=== PATIENT | female | born 1955 | race Caucasian/White ===

== ENCOUNTER 2024-12-05 12:39 | Emergency (ER) | payer OTHER, MEDICARE, SELFPAY ==
--- NOTE | ~2024-12-05 | XR_ITS ---
EXAM: XR foot RT min 3V DATE: 12/05/2024 13:01 HISTORY: right foot/toe injury 1-4th toes . COMPARISON: None available. FINDINGS: Severe osteopenia. Uncomplicated screw and plate fixation of the distal tibia and fibula. Suggestion of PIP joint fusions in the second through fourth digits. No fracture or dislocation. No l ytic or blastic lesion. Mild Achilles and plantar enthesopathy. 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 Moderate degenerative change at the ankle joint.. No erosion or periosteal change. Soft tissues within normal limits. IMPRESSION: No acute osseous finding in the right foot. Reviewed, dictated and finalized at location K.
--- NOTE | 2024-12-05 12:39 | ED_ITS ---
HPI - Extremity Injury (Lower) General Chief Complaint: Extremity Injury, Lower Stated Complaint: R TOE INJURY Time Seen by Provider: 12/05/24 12:39 Source: patient Mode of arrival: ambulatory Limitations: no limitations History of Present Illness HPI Narrative: Sydney is a 69 year old female patient presenting to the clinic today with c/o a right toe injury/pain x 1 day. She reports she just coming down off a pool ladder yesterday and slipped and her toes jammed into the ground. Hsa brusing and swelling to the 2nd-4th toes. Reports pain in the great toe as well. Abrasion to the 4th dorsal toe. Bleeding controlled. Tetanus UTD-2 year ago. Related Data Home Medications ?Medication ?Instructions ?Recorded ?Confirmed ?Last Taken ?Type atorvastatin 20 mg tablet mg 12/05/24 Unknown History clonazepam 0.5 mg tablet mg 12/05/24 Unknown History levothyroxine 112 mcg tablet mcg 12/05/24 Unknown History sertraline 50 mg tablet mg 12/05/24 Unknown History Allergies Allergy/AdvReac Type Severity Reaction Status Date / Time codeine Allergy Unknown Unknown Verified 12/05/24 12:57 sulfamethoxazole (From Allergy Unknown Unknown Verified 12/05/24 12:57 Bactrim) trimethoprim (From Bactrim) Allergy Unknown Unknown Verified 12/05/24 12:57 Review of Systems Review of Systems: Pertinent positives per HPI. Patient denies any fever, chills, rash, headache, visual changes, dizziness, cough, runny nose, sore throat, shortness of breath, chest pain, palpitations, nausea, vomiting, diarrhea, constipation, abdominal pain, or any urinary issues. PMFSH Comments At the time of my signature, I reviewed and agree with the nursing past medical, surgical, social, and family history. There is no relevant family history pertinent to the patient complaint. Exam Narrative: General: Well-developed, well nourished, in no apparent distress Head: Normocephalic, atraumatic. Cardio: Regular rate and rhythm, s1 and s2 normal, no murmur appreciated. Resp: Clear to auscultation bilaterally, no rhonchi, rales, wheezing or rubs. Musculoskeletal: No deformity, bruising and swelling noted to the right 2nd, 3rd, 4th, and 5th toes-tender to palpation, abrasion to the dorsal 4th toe, limited rom of toes due to pain and swelling, muscle strength strong and equal, peripheral pulse strong, no edema, no cyanosis, normal gait and station Course Course Emergency Course: Portions of this record may have been created with voice recognition software. Level of Care: Express Care Visit Vital Signs Vital signs: Vital Signs Temperature 36.3 C L 12/05/24 13:04 Pulse Rate 69 12/05/24 13:04 Respiratory Rate 16 12/05/24 13:04 Blood Pressure 116/75 12/05/24 13:04 Pulse Oximetry 98 12/05/24 13:04 Temperature 36.3 C L 12/05/24 13:04 Pulse Rate 69 12/05/24 13:04 Respiratory Rate 16 12/05/24 13:04 Blood Pressure 116/75 12/05/24 13:04 Pulse Oximetry 98 12/05/24 13:04 Vital signs reviewed MDM - Extremity Injury (Lower) MDM Narrative Medical decision making narrative: At the time of visit patient is resting comfortably on the exam table. Patient appears to be nontoxic. Right toes injury/pain x 1 day. She reports she just coming down off a pool ladder yesterday and slipped and her toes jammed into the ground. Hsa brusing and swelling to the 2nd-4th toes. Reports pain in the great toe as well. Abrasion to the 4th dorsal toe. Bleeding controlled. Tetanus UTD-2 year ago. X-ray of the right foot was ordered Diagnostics: X-ray of the right foot was negative for any sign of fracture or malalignment of the right foot/toes Plan: I suspect patient has foot/toe contusion/injury. Abrasion was cleansed with antiseptic wound wash and triple antibiotic ointment and Telfa dressing was applied we secured with Coban. Postop shoe, Estiven wrap apply, sensation, circulation, and motion within normal limits. Supportive measures were discussed with the patient and they voiced understanding discharge instructions and agrees to treatment plan. Return precautions reviewed Differential Diagnosis Differential diagnosis: Likely fracture of toe and other (Toe sprain, contusion, soft tissue injury, compartment syndrome) Imaging Data Radiologist's impression: ITS Impressions Foot X-Ray 12/05/24 13:06 IMPRESSION: No acute osseous finding in the right foot. Discharge Plan Discharge Clinical Impression: Pain in toe of right foot Contusion of toe of right foot Qualifiers: Encounter type: initial encounter Toe: unspecified toe Qualified Code(s): S90.121A - Contusion of right lesser toe(s) without damage to nail, initial encounter Patient Disposition: Home Condition: Stable Instructions: Antibiotic Form, Foot Contusion (ED) Additional Instructions: X-rays are negative for any sign of fracture or malalignment of the right foot/toes. Wear postop shoe as directed- may wear when walking/bearing weight Rest, ice, elevate, and wear estiven wrap as directed Tylenol/motrin for pain as discussed as per bottle Gradually bear weight No running or sports until healed. Follow up with your PCP if symptoms persist more than 1 week. Patient Language: Jamaican Prescriptions: No Action atorvastatin 20 mg tablet clonazepam 0.5 mg tablet sertraline 50 mg tablet levothyroxine 112 mcg tablet Follow-up/Referrals: UNKNOWN,DOCTOR [Non-Staff] - Time of Disposition: 13:23 Quality NIHSS Nursing Documentation ED NIHSS nursing documentation: reviewed/agree
[2024-12-05 13:04] VITALS: BP 116/75; PULSE 69; RESP 16; TEMP 36.3; O2SAT 98
== END 2024-12-05 13:26 | disposition home or self-care (01) ==
PROVIDERS: Emergency Provider Nurse Practitioner Family
DX: S90.121A Contusion of right lesser toe(s) without damage to nail, initial encounter (principal); W11.XXXA Fall on and from ladder, initial encounter; E78.00 Pure hypercholesterolemia, unspecified; E03.9 Hypothyroidism, unspecified; F41.9 Anxiety disorder, unspecified; F32.A Depression, unspecified
CPT/HCPCS: 73630; 99203; G0463